=== PATIENT | male | born 1970 ===

== ENCOUNTER 2024-12-29 09:00 | Inpatient (IN) | payer OTHER ==
[~2024-12-29] VITALS: Ht 30.5 cm; Wt 117.9 kg
[2024-12-29 07:45] LABS: BASO % 0.5 % (0.1-1.2); EOS # 0.06 (0.04-0.54); EOS % 1.4 % (0.7-7.0); LYMPH # 1.38 (1.18-3.74); LYMPH % 31.7 % (19.3-53.1); MEAN PLATELET VOLUME 10.20 fl (9.4-12.4); MONO # 0.44 (0.24-0.82); MONO % 10.1 % (4.7-12.5); NEUT # 2.44 (1.56-6.13); NEUT % 56.1 % (34.0-71.1); RED CELL DISTRIBUTION WIDTH 13.5 % (11.6-14.4)
[2024-12-29 07:50] LABS: URINE APPEARANCE Clear; URINE BILIRRUBIN Negative (NEGATIVE); URINE BLOOD Negative; URINE COLOR Yellow; URINE GLUCOSE Negative (NEGATIVE); URINE KETONE Negative (NEGATIVE); URINE LEUKOCYTE Negative; URINE NITRATE Negative; URINE PROTEIN Negative (NEGATIVE); URINE UROBILINOGEN 0.2 E.U./dl
[2024-12-29 07:54] LABS: URINE RBC 5.4 uL (0.0-20.8)
[2024-12-29 08:07] LABS: URINE BACTERIA 1.1 uL (0.0-1933); URINE CAST 0.00 uL (0.0-1.40); URINE EPITHELIAL CELLS 0.1 uL (0.0-38.8); URINE WBC 1.6 uL (0.0-23.2)
[2024-12-29 08:08] LABS: COVID-19 AG NEGATIVE (NEGATIVE)
[2024-12-29 08:10] LABS: BUN CREA RATIO 16.0 (7.0-25.0); CREATININE SERUM 0.9 mg/dL (0.70-1.30); GFR 87.61; GLUCOSE FASTING 94.0 mg/dL (65-100); INR 1.16; OSMOLALITY SERUM 287.0 MOSM/KG (275-295)
[2024-12-29] MEDS ORDERED: MICARDIS HCT 81 EACH PO (13:56)
[2024-12-29] MEDS ORDERED: NORVASC10 MG PO (13:56)
[2024-12-29] MEDS ORDERED: TOPROL XL50 M1 PO (13:56)
[2024-12-29] MEDS ORDERED: SYNTHROID50 MCG PO (13:56)
[2024-12-29 13:57] VITALS: BP 155/82
[2025-01-05] MEDS ORDERED: CEFAZOLIN SODIUM 1,000 MG VIAL ONE (09:25)
[2025-01-05] MEDS ORDERED: ENOXAPARIN SODIUM 40 MG/0.4 ML SYRINGE SUBCUTANEO ONE (09:25)
[2025-01-05] MEDS ORDERED: SURGIFLO APPLICATOR 1 EACH APPL TOP ONE (11:39)
[2025-01-05] MEDS ORDERED: HEMOSTATIC MATRIX 1 KIT KIT TOP ONE (11:39)
[2025-01-05] MEDS ORDERED: BUPIVACAINE HCL/MPF 0.5% 30ML VIAL ONE (11:40)
[2025-01-05] MEDS ORDERED: MORPHINE SULFATE 4 MG/ML CARTRIDGE IV PRN (17:00)
[2025-01-05] MEDS ORDERED: ONDANSETRON HCL 2 MG/ML VIAL IV PRN (17:00)
[2025-01-05] MEDS ORDERED: OxyCODONE HCL 5 MG TABLET (ROXICODONE) PO PRN (17:00)
[2025-01-05] MEDS ORDERED: RINGERS SOLUTION,LACTATED 1,000 ML IV SCH (17:00)
[2025-01-05] MEDS ORDERED: GABAPENTIN 300 MG CAPSULE PO SCH (17:00)
[2025-01-05] MEDS ORDERED: ENALAPRILAT DIHYDRATE 1.25 MG/ML VIAL IV PRN (17:00)
[2025-01-05] MEDS ORDERED: SUGAMMADEX SODIUM 200 MG/2 ML VIAL IV ONE (17:30)
[2025-01-05 19:24] LABS: BASO % 0.1 % (0.1-1.2); EOS # 0.00 (0.04-0.54); EOS % 0.0 % (0.7-7.0); LYMPH # 0.76 (1.18-3.74); LYMPH % 6.0 % (19.3-53.1); MEAN PLATELET VOLUME 10.00 fl (9.4-12.4); MONO # 0.56 (0.24-0.82); MONO % 4.4 % (4.7-12.5); NEUT # 11.25 (1.56-6.13); NEUT % 89.2 % (34.0-71.1); RED CELL DISTRIBUTION WIDTH 13.2 % (11.6-14.4)
[2025-01-05 20:04] LABS: BUN CREA RATIO 12.0 (7.0-25.0); CREATININE SERUM 0.9 mg/dL (0.70-1.30); GFR 87.61; GLUCOSE FASTING 147.0 mg/dL (65-100); OSMOLALITY SERUM 283.0 MOSM/KG (275-295)
[2025-01-05] MEDS ORDERED: FAMOTIDINE/PF 20 MG/2 ML VIAL IV SCH (21:00)
[2025-01-05] MEDS ORDERED: CEFAZOLIN SODIUM 1,000 MG VIAL IV SCH (21:00)
[2025-01-05 21:54] VITALS: BP 155/82; O2SAT 95
[2025-01-06 00:30] VITALS: BP 137/73; O2SAT 99
[2025-01-06 07:33] LABS: BASO % 0.2 % (0.1-1.2); EOS # 0.02 (0.04-0.54); EOS % 0.2 % (0.7-7.0); LYMPH # 1.26 (1.18-3.74); LYMPH % 13.8 % (19.3-53.1); MEAN PLATELET VOLUME 10.70 fl (9.4-12.4); MONO # 0.77 (0.24-0.82); MONO % 8.4 % (4.7-12.5); NEUT # 7.03 (1.56-6.13); NEUT % 77.2 % (34.0-71.1); RED CELL DISTRIBUTION WIDTH 13.5 % (11.6-14.4)
[2025-01-06 08:00] VITALS: BP 121/69; O2SAT 98
[2025-01-06 08:00] LABS: BUN CREA RATIO 10.0 (7.0-25.0); CREATININE SERUM 0.88 mg/dL (0.70-1.30); GFR 89.91; GLUCOSE FASTING 111.0 mg/dL (65-100); OSMOLALITY SERUM 282.0 MOSM/KG (275-295)
[2025-01-06] MEDS ORDERED: METOPROLOL SUCCINATE 50 MG TAB.SR.24H PO SCH (09:00)
[2025-01-06] MEDS ORDERED: ENOXAPARIN SODIUM 40 MG/0.4 ML SYRINGE SUBCUTANEO SCH (09:00)
[2025-01-06] MEDS ORDERED: AMLODIPINE BESYLATE 10 MG TABLET PO SCH (09:00)
== END 2025-01-06 11:58 | disposition home or self-care (01) | DRG 708 ==
LOC: SURH 01-05 07:00 → O/R 01-05 09:00 → SURH 01-05 09:00 → SURG 01-05 19:18
PROVIDERS: ADMIT Urology; ATTEND Urology
PROC: 8E0W4CZ Robotic Assisted Procedure of Trunk Region, Percutaneous Endoscopic Approach (ICD-10-PCS; 2025-01-05)
PROC: 0VT04ZZ Resection of Prostate, Percutaneous Endoscopic Approach (ICD-10-PCS; principal; 2025-01-05 07:00)
DX: C61 Malignant neoplasm of prostate (principal)
CPT/HCPCS: 55866; S2900